=== PATIENT | female | born 1950 | race Caucasian/White ===

== ENCOUNTER 2016-10-27 07:16 | Outpatient (CLI) | payer MEDICAID | END 2016-10-27 07:17 | disposition home or self-care (01) | DX: R11.2 Nausea with vomiting, unspecified (principal); Z13.220 Encounter for screening for lipoid disorders ==

== ENCOUNTER 2017-07-31 08:40 | Emergency (ER) | payer MEDICARE, OTHER ==
[2017-07-31 09:16] LABS: BILIRUBIN,URINE NEGATIVE (NEGATIVE); PH,URINE 7.5 PH (5.0-7.5)
[2017-07-31 09:18] LABS: UA CHARGE (STRIP ONLY) YES; UR CULTURE IF IND NOT INDICATED
[2017-07-31] MEDS ORDERED: CYCLOBENZAPRINE 10 MG TABLET PO STA (10:10)
[2017-07-31] MEDS ORDERED: LIDOCAINE PATCH 5% TOP STA (10:10)
[2017-07-31] MEDS ORDERED: LIDOCAINE PATCH 5% TOP ONE (10:21)
[2017-07-31] MEDS ORDERED: CYCLOBENZAPRINE 10 MG TABLET PO ONE (10:21)
--- NOTE | 2017-07-31 10:40 | ED Physician Documentation ---
History of Present Illness - Stated complaint Stated Complaint: LOWER BACK PX - Chief complaint Chief Complaint: Back Pain - Additonal information Additional information: hx from pt 67 female has some chronic back pain and recently started working out at the gym and pain is increased no feveer, no recent surgery or dental work no CP cough SOA no abd pain no urinary sx no numbness or weakness took motrin s relief Review of Systems Constitutional: denies: Fever, Chills Cardiac: denies: Chest pain / pressure Respiratory: denies: Dyspnea GI: denies: Abdominal Pain : denies: Dysuria, Incontinent Musculoskeletal: reports: Back pain Neurologic: denies: Generalized weakness, Focal weakness, Numbness PD PAST MEDICAL HISTORY - Past Medical History Musculoskeletal: Chronic back pain - Past Surgical History Past Surgical History: No - Present Medications Home Medications: Ambulatory Orders Medication Instructions Recorded Confirmed Ibuprofen [Motrin] 400 mg PO Q6H PRN #20 tablet 03/01/16 07/31/17 Carisoprodol [Soma] 350 mg PO Q8H PRN #15 tablet 07/31/17 Lidocaine Patch 5% [Lidoderm Patch] 1 each TOP DAILY PRN #10 patch 07/31/17 - Allergies Allergies/Adverse Reactions: Allergies Allergy/AdvReac Type Severity Reaction Status Date / Time No Known Drug Allergies Allergy Verified 07/31/17 09:02 - Social History Does the pt smoke?: No Smoking Status: Never smoker Does the pt drink ETOH?: No Does the pt have substance abuse?: No - Immunizations Immunizations are current?: Yes PD ED PE NORMAL - Vitals Vital signs reviewed: Yes - Neck Neck: Supple, no meningeal sign - Cardiac Cardiac: RRR - Respiratory Respiratory: No respiratory distress, Clear bilaterally - Abdomen Abdomen: Soft, Non tender, Other (no pulsatile mass) - Back Back: Other (diffuse TTP across lower lumbar region and limited ROM 2/2 same) - Neuro Neuro: No motor deficit, No sensory deficit, Other (hip flex knee ext foot dorsi plantar and great toe ext 5/5 nl sensation, denies saddle anesthesia, no clonus, neg SLR braulio) Results - Vitals Vitals: Vital Signs - 24 hr 07/31/17 08:58 Temperature 36.4 C L Heart Rate 76 Respiratory 16 Rate Blood Pressure 113/79 O2 Saturation 100 Oxygen O2 Source Room air - Labs Labs: Laboratory Tests 07/31/17 09:05 Urine Color YELLOW Urine Clarity CLEAR Urine pH 7.5 Ur Specific Reagan 1.010 Urine Protein NEGATIVE Urine Glucose (UA) NEGATIVE Urine Ketones NEGATIVE Urine Occult Blood NEGATIVE Urine Nitrite NEGATIVE Urine Bilirubin NEGATIVE Urine Urobilinogen 0.2 (NORMAL) Ur Leukocyte Esterase NEGATIVE Ur Microscopic Review NOT INDICATED Urine Culture Comments NOT INDICATED PD MEDICAL DECISION MAKING - ED course ED course: seems like ST muscular low back pain explained to pt why I do not think imaging is indicated in this situation and rec focus on sx control and she is pleased with that plan Departure - Departure Disposition: 01 Home, Self Care Clinical Impression: Back pain Qualifiers: Back pain location: low back pain Chronicity: acute Back pain laterality: bilateral Sciatica presence: without sciatica Qualified Code(s): M54.5 - Low back pain Condition: Good Instructions: ED Low Back Pain Injury Prescriptions: Carisoprodol [Soma] 350 mg PO Q8H PRN #15 tablet PRN Reason: muscle spasm Lidocaine Patch 5% [Lidoderm Patch] 1 each TOP DAILY PRN #10 patch PRN Reason: Pain Comments: Continue the ibuprofen if it does not bother your stomach And add the lidocaine patches and muscle relaxant Please follow up with your PMD for a recheck - if you are not doing better, a referral to physical therapy may be helpful Return if worse or if new symptoms such as numbness, weakness, abdominal pain, or urinary problems develop
[2017-07-31 10:50] VITALS: BP 110/68
== END 2017-07-31 10:52 | disposition home or self-care (01) ==
LOC: ED 08:40
DX: M54.5 Low back pain (principal); G89.29 Other chronic pain; R03.0 Elevated blood-pressure reading, without diagnosis of hypertension
CPT/HCPCS: 81003; 99283; A9270; 81001; 87086

== ENCOUNTER 2017-08-30 08:00 | Outpatient (CLI) | payer MEDICARE ==
[2017-08-30 18:28] LABS: BILIRUBIN,URINE NEGATIVE (NEGATIVE); PH,URINE 7.5 PH (5.0-7.5)
[2017-08-30 18:44] LABS: UR CULTURE IF IND INDICATED; WBC,URINE >25 /HPF (0-5)
== END 2017-08-30 08:01 ==
LOC: LAB.R 08:00
PROVIDERS: ATTEND Nurse Practitioner Family
DX: R30.0 Dysuria (principal)
CPT/HCPCS: 81001; 87086

== ENCOUNTER 2018-07-19 08:38 | Outpatient (CLI) | payer MEDICARE ==
--- NOTE | 2018-07-22 14:26 | Mammography Report ---
Reason: BILAT SCREEN w DEMARCUS Procedure Date: 07/19/2018 Accession Number: [id number] / [id number] Procedure: RAMESH - Screening Mammo w/Demarcus CPT Code: FULL RESULT: EXAM: Screening Mammo w/Demarcus DATE: 07/19/2018 9:07 AM CLINICAL HISTORY: 68-year-old female with history of late childbearing. TECHNIQUE: Bilateral CC and MLO views were obtained. COMPARISON: 10/07/2015, 09/10/2012, 10/06/2010, 07/15/2009. FINDINGS: The breasts demonstrate scattered fibroglandular densities bilaterally. Coarse typically benign calcifications are seen in the left breast. On the right MLO 3-D tomogram in the inferior lateral breast 4.7 cm from the nipple is a well-circumscribed mass at the 7:00 position which requires additional views and possibly ultrasound. IMPRESSION: Incomplete examination RECOMMENDATION: Additional evaluation as above. BIRADS CATEGORY 0: Incomplete examination STANDARD QUALIFYING STATEMENTS: 1. This examination was not reviewed with the aid of Computer-Aided Detection (CAD). 2. A negative or benign imaging report should not delay biopsy if clinically suspicious findings are present. Consider surgical consultation if warrented. More than 5% of cancers are not identified by imaging. 3. Dense breasts may obscure an underlying neoplasm. 4. This examination was reviewed with the aid of 3D breast imaging (tomosynthesis).
== END 2018-07-19 08:39 | disposition home or self-care (01) ==
LOC: DI 08:38
DX: Z12.31 Encounter for screening mammogram for malignant neoplasm of breast (principal)
CPT/HCPCS: 77063; 77067

== ENCOUNTER 2018-08-08 14:03 | Outpatient (CLI) | payer MEDICARE ==
--- NOTE | 2018-08-08 16:50 | Mammography Report ---
Reason: ABN MAMMO - RT SPEC VIEWS Procedure Date: 08/08/2018 Accession Number: [id number] / [id number] Procedure: RAMESH - Diag Special Views Dig RT CPT Code: FULL RESULT: EXAM: Diag Special Views Dig RT DATE: 08/08/2018 2:40 PM CLINICAL HISTORY: Follow-up abnormal mammogram 07/19/2018 TECHNIQUE: Additional spot compression and true lateral views including tomography right breast. COMPARISON: 07/19/2018 FINDINGS: The previously described density in the right breast does not persist on additional views. IMPRESSION: Negative examination RECOMMENDATION: Return to routine screening in 12 months. BIRADS CATEGORY 1: Negative STANDARD QUALIFYING STATEMENTS: 1. This examination was reviewed with the aid of Computer-Aided Detection (CAD). 2. A negative or benign imaging report should not delay biopsy if clinically suspicious findings are present. Consider surgical consultation if warrented. More than 5% of cancers are not identified by imaging. 3. Dense breasts may obscure an underlying neoplasm.
== END 2018-08-08 14:04 | disposition home or self-care (01) ==
LOC: DI 14:03
PROVIDERS: ATTEND Nurse Practitioner Family
DX: R92.8 Other abnormal and inconclusive findings on diagnostic imaging of breast (principal)

== ENCOUNTER 2018-09-09 08:34 | Outpatient (CLI) | payer MEDICARE ==
--- NOTE | 2018-09-10 09:21 | DEXA Report ---
Reason: PREVENTIVE HEALTH CARE Procedure Date: 09/09/2018 Accession Number: [id number] / [id number] Procedure: DEX - Dexa Spine and/or Hip CPT Code: FULL RESULT: EXAM: Dexa Spine and/or Hip DATE: 09/09/2018 9:06 AM CLINICAL HISTORY: PREVENTIVE HEALTH CARE TECHNIQUE: Dual energy x-ray absorptiometry (DXA) was performed on a [employer] System. Regions measured are the AP Spine, femoral neck, and if needed forearm. COMPARISON: None. In accordance with the International Society for Clinical Densitometry (ISCD) guidelines, data from previous exams may be reanalyzed using current recommendations and techniques. This is done to allow a more accurate basis for comparison with the current study. FINDINGS: The data for the lumbar spine is as follows: BMD (g/cm/cm) T-SCORE Z-SCORE REGION L1 0.966 -1.4 0.1 L2 1.139 -0.5 1.0 L3 1.246 0.4 1.9 L4 1.175 -0.2 1.3 TOTAL 1.135 -0.4 1.1 NOTE: All evaluable vertebrae are used for classification The data for the hip is as follows: BMD (g/cm/cm) T-SCORE Z-SCORE REGION Neck 0.918 -0.9 0.6 TOTAL 0.951 -0.5 0.7 NOTE: The femoral neck or total proximal femur, whichever is lowest, is used for classification. * Denotes significant change at the 95% confidence level. Denotes dissimilar scan types or analysis methods. IMPRESSION: THE WHO CLASSIFICATION BASED ON THE INTERNATIONAL REFERENCE STANDARD IS NORMAL. THE FRACTURE RISK IS NOT INCREASED. RECOMMENDATION: Patients with diagnosis of osteoporosis or osteopenia should have regular bone mineral density assessment. For those eligible for Medicare, routine testing is allowed once every 2 years. Testing frequency can be increased for patients who have rapidly progressing disease or for those who are receiving medical therapy to restore bone mass. COMMENT: World Health Organization (WHO) definitions for osteoporosis and osteopenia: NORMAL BMD: T-score at -1.0 or higher, fracture risk is low OSTEOPENIA BMD: T-score between -1.0 and -2.5, fracture risk is increased. OSTEOPOROSIS BMD: T-score at -2.5 or lower, fracture risk is high. National Osteoporosis Foundation recommends: 1. Obtain adequate dietary calcium (at least 1200 mg per day) and vitamin D (400-800 international units per day). 2. Participate, as appropriate, in regular weightbearing and muscle-strengthening exercise. 3. Avoid tobacco use and reduce alcohol and caffeine intake. 4. For more detailed information see the website at www.NOF.org.
== END 2018-09-09 08:35 | disposition home or self-care (01) ==
LOC: DI 08:34
PROVIDERS: ATTEND Nurse Practitioner Family
DX: Z00.00 Encounter for general adult medical examination without abnormal findings (principal)
CPT/HCPCS: 77080

== ENCOUNTER 2019-07-10 06:58 | Outpatient (CLI) | payer MEDICARE ==
[2019-07-10 09:59] LABS: BASOPHILS % (AUTO) 0.7 %; EOSINOPHILS # (AUTO) 0.1 10^3/uL (0.0-0.7); EOSINOPHILS % (AUTO) 2.7 %; HGB - HEMOGLOBIN 13.5 g/dL (12.0-16.0); LYMPHOCYTES # (AUTO) 1.3 10^3/uL (1.5-3.5); MEAN CORPUSCULAR HEMOGLOBIN 31.6 pg (27.0-31.0); MEAN CORPUSCULAR HGB CONC 32.8 g/dL (32.0-36.0); MEAN CORPUSCULAR VOLUME 96.3 fL (81.0-99.0); MEAN PLATELET VOLUME 9.9 fL (7.9-10.8); MONOCYTES # (AUTO) 0.3 10^3/uL (0.0-1.0); MONOCYTES % (AUTO) 7.5 %; NEUTROPHILS # (AUTO) 2.4 10^3/uL (1.5-6.6); NEUTROPHILS % (AUTO) 57.9 %; PLT - PLATELET COUNT 89 10^3/uL (130-450); RED BLOOD COUNT 4.27 10^6/uL (4.20-5.40); RED CELL DISTRIBUTION WIDTH 12.8 % (12.0-15.0); WHITE BLOOD COUNT 4.1 x10^3/uL (4.8-10.8)
[2019-07-10 10:15] LABS: ALBUMIN 3.9 g/dL (3.2-5.5); ALBUMIN/GLOBULIN RATIO 1.6 (1.0-2.2); ALKALINE PHOSPHATASE 68 IU/L (42-121); ALT ALANINE AMINOTRANSFERASE 18 IU/L (10-60); AST ASPARTATE AMINOTRANSFERASE 26 IU/L (10-42); BILIRUBIN,TOTAL 0.7 mg/dL (0.2-1.0); BUN - BLOOD UREA NITROGEN 10 mg/dL (6-20); CALCIUM 8.5 mg/dL (8.5-10.3); CARBON DIOXIDE - CO2 27 mmol/L (21-32); CHLORIDE 108 mmol/L (101-111); CHOLESTEROL 209 mg/dL; CREATININE 0.8 mg/dL (0.4-1.0); GFR - MDRD 72 (>89); GLUCOSE 78 mg/dL (70-100); SODIUM 140 mmol/L (135-145); TOTAL PROTEIN 6.3 g/dL (6.7-8.2); VLDL CHOLESTEROL 16 mg/dL
[2019-07-10 10:16] LABS: CHOL/HDL RATIO 2.6 (<4.4); HDL CHOLESTEROL 80 mg/dL; LDL CHOLESTEROL,CALCULATED 113 mg/dL; LDL/HDL RATIO 1.4 (<4.4)
[2019-07-10 10:37] LABS: HB2 TOTAL 13.9 g/dL; HEMOGLOBIN A1C 0.45 g/dL; HEMOGLOBIN A1C % 5.1 % (4.6-6.2)
== END 2019-07-10 06:59 | disposition home or self-care (01) ==
LOC: LAB.S 06:58
PROVIDERS: ATTEND Registered Nurse
DX: Z13.228 Encounter for screening for other metabolic disorders (principal); Z13.220 Encounter for screening for lipoid disorders; Z13.29 Encounter for screening for other suspected endocrine disorder; Z13.0 Encounter for screening for diseases of the blood and blood-forming organs and certain disorders involving the immune mechanism
CPT/HCPCS: 36415; 80053; 80061; 83036; 83721; 84443; 85025

== ENCOUNTER 2019-09-21 07:14 | Outpatient (CLI) | payer MEDICARE ==
--- NOTE | 2019-09-22 15:32 | Ultrasound Report ---
Reason: LARGE LIVER Procedure Date: 09/21/2019 Accession Number: [id number] / [id number] Procedure: US - Abdomen Complete CPT Code: Final Report FULL RESULT: EXAM: ABDOMEN ULTRASOUND EXAM DATE: 09/21/2019 09:28 AM. CLINICAL HISTORY: Large liver. COMPARISON: None. TECHNIQUE: Real-time scanning was performed with static images obtained. FINDINGS: Liver: Liver background parenchyma is somewhat heterogeneous with evaluation of echotexture complicated by numerous cysts in both hepatic lobes, which demonstrate increased through-transmission, varying the echogenicity. Liver measures at least 16.3 cm. Main portal vein flow: Hepatopetal. Visualized cysts are thin-walled and demonstrate no solid soft tissue component, a few appear thinly septated. The largest cyst in the left lobe of the liver measures 13.4 x 9.5 x 12.7 cm. Gallbladder: Normal. No stones, wall thickening, or sonographic Hairston's sign. Biliary System: Common bile duct measures 5 mm. No intrahepatic or extrahepatic ductal dilatation. Pancreas: Visualized portion is unremarkable. Kidneys: Right: 10.3 cm longitudinally. Echogenic focus measuring up to 0.3 cm in the lower pole may represent a nonobstructing calculus. No hydronephrosis or solid soft tissue mass. Left: 10.3 cm longitudinally. Normal. No contour-deforming mass, stones, or hydronephrosis. Spleen: 11 cm. Normal in size and echotexture. Aorta and Inferior Vena Cava: Unremarkable. Other: None. IMPRESSION: Polycystic appearing liver without solid soft tissue mass detected. RADIA
== END 2019-09-21 07:15 | disposition home or self-care (01) ==
LOC: DI 07:14
PROVIDERS: ATTEND Internal Medicine Hematology & Oncology
DX: Q44.6 Cystic disease of liver (principal); D69.6 Thrombocytopenia, unspecified
CPT/HCPCS: 76700

== ENCOUNTER 2020-06-15 11:18 | Outpatient (CLI) | payer MEDICARE ==
--- NOTE | 2020-06-15 11:52 | XRAY Report ---
PROCEDURE: Shoulder 3 View RT INDICATIONS: RIGHT SHOULDER PAIN TECHNIQUE: 3 views of the shoulder were acquired. COMPARISON: None FINDINGS: Bones: No acute fractures or dislocations. Moderate hypertrophic osteoarthritic changes of the right acromioclavicular joint. The coracoclavicular and acromioclavicular intervals are maintained. No lamberto picious bony lesions. Visualized ribs appear intact. Soft tissues: No suspicious soft tissue calcifications. IMPRESSION: Right shoulder without acute osseous abnormalities. Moderate hypertrophic osteoarthritic changes of the right acromioclavicular joint. Reviewed by: Vlad Mathews MD on 06/15/2020 11:51 AM PDT Approved by: Vlad Mathews MD on 06/15/2020 11:51 AM PDT Station ID: [id number]
== END 2020-06-15 11:19 | disposition home or self-care (01) ==
LOC: DI.S 11:18
PROVIDERS: ATTEND Family Medicine
DX: M19.011 Primary osteoarthritis, right shoulder (principal)

== ENCOUNTER 2020-09-10 13:12 | Outpatient (CLI) | payer MEDICARE ==
--- NOTE | 2020-09-13 13:22 | Mammography Report ---
BILATERAL DIGITAL SCREENING MAMMOGRAM 3D/2D: 09/10/2020 CLINICAL: Routine screening. Comparison is made to exams dated: 08/08/2018 mammogram, 07/19/2018 mammogram, and 10/07/2015 mammogr am [facility]. There are scattered fibroglandular elements in both breasts. No significant masses, calcifications, or other findings are seen in either breast. There has been no significant interval change. IMPRESSION: NEGATIVE There is no mammographic evidence of malignancy. A 1 year screening mammogram is recommended. This exam was interpreted at Station ID: [id number]. NOTE: For mammograms, a report in lay terms will be sent to the patient. Approximately 15% of breast malignancies will not be visualized mammographically. In the management of a palpable breast mass, a negative mammogram must not discourage biopsy of a clinically suspicious lesion. Electronically Signed By: Kevin sal/randy:09/10/2020 15:01:52 ACR BI-RADS Category 1: Negative 3341F PARENCHYMAL PATTERN: (A) - The breast(s) demonstrate(s) scattered fibroglandular densities. BI-RADS CATEGORY: (1) - 1 RECOMMENDATION: (ANNUAL) - Recommend routine annual screening mammography. [id number] 1 year screening LATERALITY: (B)
== END 2020-09-10 13:13 | disposition home or self-care (01) ==
LOC: DI 13:12
DX: Z12.31 Encounter for screening mammogram for malignant neoplasm of breast (principal)

== ENCOUNTER 2022-08-04 08:00 | Outpatient (CLI) | payer MEDICARE ==
--- NOTE | 2022-08-04 19:16 | XRAY Report ---
PROCEDURE: Knee 2 View RT INDICATIONS: RIGHT KNEE PAIN TECHNIQUE: 2 views of the right knee(s) were acquired. COMPARISON: None. FINDINGS: Bones: No fractures or dislocations. No suspicious bony lesions. Tricompartment osteophytes. Mild medial compartment joint space loss on nonweightbearing. Soft tissues: No joint effusion. No suspicious soft tissue calcifications. IMPRESSION: Degenerative arthritis. Reviewed by: Jt Martinez MD on 08/04/2022 7:15 PM PDT Approved by: Jt Martinez MD on 08/04/2022 7:15 PM PDT Station ID: [id number]
== END 2022-08-04 08:01 | disposition home or self-care (01) ==
LOC: DI.S 08:00
PROVIDERS: ATTEND Registered Nurse
DX: M17.11 Unilateral primary osteoarthritis, right knee (principal)

== ENCOUNTER 2022-08-28 11:30 | Outpatient (CLI) | payer MEDICARE ==
--- NOTE | 2022-08-28 09:59 | XRAY Report ---
PROCEDURE: Knee 3 View RT INDICATIONS: RIGHT KNEE PAIN TECHNIQUE: 3 views of the right knee(s) were acquired. COMPARISON: None. FINDINGS: Bones: No fractures or dislocations. No suspicious bony lesions. Tricompartmental small osteophyte s are seen. No joint space narrowing. Soft tissues: No joint effusion. No suspicious soft tissue calcifications. IMPRESSION: Minimal degenerative changes. No acute abnormality. Reviewed by: Lupillo Owens on 08/28/2022 9:58 AM [facility] Approved by: Lupillo Owens on 08/28/2022 9:58 AM [facility] Station ID: [id number]
== END 2022-08-28 11:31 | disposition home or self-care (01) ==
LOC: DI.WOS 11:30
PROVIDERS: ATTEND Physician Assistant Surgical
DX: M17.11 Unilateral primary osteoarthritis, right knee (principal)

== ENCOUNTER 2022-09-05 10:28 | Outpatient (CLI) | payer MEDICARE ==
--- NOTE | 2022-09-06 10:06 | Mammography Report ---
BILATERAL DIGITAL SCREENING MAMMOGRAM 3D/2D WITH EXAGGERATED CC: 09/05/2022 CLINICAL: Routine screening. Comparison is made to exams dated: 08/08/2018 mammogram, 09/10/2020 mammogram, 07/19/2018 mammogram, and 10/07/2015 mammogram - [facility]. There are scattered areas of fibroglandular density in both breasts (category b / 25%-50% glandular t issue). No significant masses, calcifications, or other findings are seen in either breast. There has been no significant interval change. IMPRESSION: NEGATIVE There is no mammographic evidence of malignancy. A 1 year screening mammogram is recommended. Based on the Tyrer Cuzick model (a risk assessment model) the patients lifetime risk is 5.4% and her 10 year risk is 3.4%. According to the ACR, ACS, and NCCN guidelines, an annual breast MRI exam moustapha g with mammogram is recommended if the patients lifetime risk is 20% or greater. This exam was interpreted at Station ID: [id number]. NOTE: For mammograms, a report in lay terms will be sent to the patient. Approximately 15% of breast malignancies will not be visualized mammographically. In the management of a palpable breast mass, a negative mammogram must not discourage biopsy of a clinically suspicious lesion. Electronically Signed By: Vlad chaney/randy:09/05/2022 13:14:35 ACR BI-RADS Category 1: Negative 3341F PARENCHYMAL PATTERN: (A) - The breast(s) demonstrate(s) scattered fibroglandular densities. BI-RADS CATEGORY: (1) - 1 RECOMMENDATION: (ANNUAL) - Recommend routine annual screening mammography. [id number] 1 year screening LATERALITY: (B)
== END 2022-09-05 10:29 | disposition home or self-care (01) ==
LOC: DI.S 10:28
PROVIDERS: ATTEND Registered Nurse
DX: Z12.31 Encounter for screening mammogram for malignant neoplasm of breast (principal)

== ENCOUNTER 2023-07-27 13:12 | Outpatient (CLI) | payer MEDICARE ==
--- NOTE | 2023-07-30 08:32 | MRI Report ---
PROCEDURE: LUMBAR SPINE WO INDICATIONS: LEFT LEG NUMBNESS TECHNIQUE: Noncontrast sagittal T1 spin echo and T2 fast echo, sagittal STIR, axial T1 and T2 fast spin echo thr ough the lumbar spine. In cases with scoliosis, additional coronal T2 fast spin echo may be performe d. COMPARISON: None. FINDINGS: Image quality: Excellent. Alignment and Curvature: There is normal bony alignment. Bone Marrow: Marrow is of normal overall signal. No acute vertebral body compression fractures. Spinal Cord: Conus medullaris terminates at the L1-L2 level. Visualized cord demonstrates normal si gnal and size. Paraspinous Soft Tissues: No paravertebral masses. T11-T12: Mild disc bulge. No canal stenosis or foraminal stenosis. T12-L1: No canal stenosis or foraminal stenosis. L1-L2: Moderate chronic disc height loss. Mild facet hypertrophy. No canal stenosis or foraminal s tenosis. L2-L3: Severe disc height loss. Posterior disc osteophyte complex. Facet hypertrophy. Mild canal s tenosis. No significant foraminal stenosis. L3-L4: Severe disc height loss. Posterior disc osteophyte complex. Facet hypertrophy. Mild canal st enosis. Mild bilateral foraminal stenosis. L4-L5: Moderate disc height loss. Posterior disc bulge with minimal superimposed central posterior disc protrusion. Facet and ligament hypertrophy. Moderate canal stenosis. Mild right foraminal narrow ing. Moderate left foraminal narrowing with flattening deformity on the exiting left L4 nerve root. L5-S1: Disc bulge. Facet hypertrophy. No canal stenosis. Mild to moderate bilateral foraminal steno sis. IMPRESSION: 1. Multilevel underlying facet arthropathy and degenerative disc space loss. 2. Canal stenosis is mild at L2-L3, mild at L3-L4, and moderate at L4-L5. 3. There is moderate left foraminal narrowing at L4-L5. Reviewed by: Jt Martinez MD on 07/30/2023 8:31 AM PDT Approved by: Jt Martinez MD on 07/30/2023 8:31 AM PDT Station ID: [id number]
== END 2023-07-27 13:13 | disposition home or self-care (01) ==
LOC: DI 13:12
PROVIDERS: ATTEND Internal Medicine
DX: M47.816 Spondylosis without myelopathy or radiculopathy, lumbar region (principal); M51.36 Other intervertebral disc degeneration, lumbar region; M48.061 Spinal stenosis, lumbar region without neurogenic claudication; M51.37 Other intervertebral disc degeneration, lumbosacral region; M48.07 Spinal stenosis, lumbosacral region

== ENCOUNTER 2023-09-04 09:45 | Outpatient (CLI) | payer MEDICARE ==
--- NOTE | 2023-09-05 15:37 | Mammography Report ---
BILATERAL DIGITAL SCREENING MAMMOGRAM 3D/2D: 09/04/2023 CLINICAL: Routine screening. Comparison is made to exams dated: 09/05/2022 mammogram, 09/10/2020 mammogram, and 08/08/2018 mammog [facility]. There are scattered areas of fibroglandular density in both breasts (category b / 25%-50% glandular t issue). No significant masses, calcifications, or other findings are seen in either breast. There has been no significant interval change. IMPRESSION: NEGATIVE There is no mammographic evidence of malignancy. A 1 year screening mammogram is recommended. Based on the Tyrer Cuzick model (a risk assessment model) the patients lifetime risk is 5.1% and her 10 year risk is 3.5%. According to the ACR, ACS, and NCCN guidelines, an annual breast MRI exam moustapha g with mammogram is recommended if the patients lifetime risk is 20% or greater. This exam was interpreted at Station ID: [id number]. NOTE: For mammograms, a report in lay terms will be sent to the patient. Approximately 15% of breast malignancies will not be visualized mammographically. In the management of a palpable breast mass, a negative mammogram must not discourage biopsy of a clinically suspicious lesion. Electronically Signed By: Kevin sal/randy:09/04/2023 16:15:28 letter sent: No_Letter ACR BI-RADS Category 1: Negative 3341F PARENCHYMAL PATTERN: (A) - The breast(s) demonstrate(s) scattered fibroglandular densities. BI-RADS CATEGORY: (1) - 1 Mammogram [id number] 1 year screening LATERALITY: (B)
== END 2023-09-04 09:46 | disposition home or self-care (01) ==
LOC: DI.S 09:45
PROVIDERS: ATTEND Registered Nurse
DX: Z12.31 Encounter for screening mammogram for malignant neoplasm of breast (principal); R92.323 Mammographic fibroglandular density, bilateral breasts

== ENCOUNTER 2023-09-26 08:00 | Outpatient (CLI) | payer MEDICARE | END 2023-09-26 23:58 | disposition home or self-care (01) | LOC: LAB.S 08:00 | PROVIDERS: ATTEND Emergency Medicine | DX: J02.9 Acute pharyngitis, unspecified (principal) | CPT/HCPCS: 87070 ==

== ENCOUNTER 2023-12-31 08:00 | Outpatient (CLI) | payer MEDICARE ==
--- NOTE | 2023-12-31 13:24 | XRAY Report ---
PROCEDURE: Knee 4 View RT INDICATIONS: RIGHT KNEE PAIN TECHNIQUE: 4 views of the knee(s) were acquired. COMPARISON: None. FINDINGS: Bones: No fractures or dislocations. Moderate DJD of the right knee especially of the patellofemoral compartment. Soft tissues: No radiographically evident suprapatellar joint effusion IMPRESSION: DJD especially of the patellofemoral compartment Reviewed by: Juan Lopez MD on 12/31/2023 1:23 PM PDT Approved by: Juan Lopez MD on 12/31/2023 1:23 PM PDT Station ID: [id number]
== END 2023-12-31 23:59 | disposition home or self-care (01) ==
LOC: DI.WOS 08:00
PROVIDERS: ATTEND Physician Assistant Surgical
DX: M17.11 Unilateral primary osteoarthritis, right knee (principal)

== ENCOUNTER 2024-02-22 07:09 | Outpatient (CLI) | payer MEDICARE ==
[2024-02-22 22:52] LABS: ESTIMATED AVERAGE GLUCOSE 97 mg/dL (70-100)
== END 2024-02-22 07:10 | disposition home or self-care (01) ==
LOC: LAB.S 07:09
DX: G62.9 Polyneuropathy, unspecified (principal)
CPT/HCPCS: 36415; 82607; 83036; 84207